=== PATIENT | female | born 1935 | race Caucasian/White ===

== ENCOUNTER 2022-03-29 12:38 | Inpatient (IN) ==
[2022-03-29] MEDS ORDERED: Morphine 4 MG/ML VIAL (1 ml) IV ONE (12:45)
[2022-03-29 15:00] LABS: ABS Eosinophils 0.1 10^3/ul (0-0.6); ABS Lymphocytes 0.9 10^3/ul (1.0-4.8); ABS Monocytes 0.8 10^3/ul (0-0.8); ABS Neutrophils 15.7 10^3/ul (1.5-7.7); Eosinophil % 0.3 %; Hematocrit 38 % (35-47); Hemoglobin 13.1 g/dL (12.0-16.0); Lymphocyte % 5.3 %; Mean Corpuscular HGB Conc 34 g/dL (31-36); Mean Corpuscular Hemoglobin 30 pg (27-31); Mean Corpuscular Volume 89 fL (80-97); Mean Platelet Volume 9.3 fL (7.4-10.4); Platelet Count 237 10^3/uL (150-450); Red Blood Count 4.33 10^6 /uL (3.70-4.87); Red Cell Distribution Width 14 % (10-15); White Blood Count 17.6 10^3/uL (3.5-10.8)
[2022-03-29 15:39] LABS: Calcium 9.8 mg/dL (8.6-10.3); Potassium 3.6 mmol/L (3.5-5.0); eGFR CKD-EPI 61.1 (>60)
[2022-03-29] MEDS ORDERED: Al Hydrox/Mg Hydrox/Simet LIQ 30 ML UDC PO PRN (17:38)
[2022-03-29] MEDS ORDERED: Magnesium Hydroxide LIQ 30 ML UDC PO PRN (17:38)
[2022-03-29] MEDS ORDERED: Ondansetron 4 mg VIAL 2 MG/ML 2 ml VIAL IV PRN (17:38)
[2022-03-29] MEDS ORDERED: Morphine 2 MG/ML SYRINGE IV PRN (17:45)
[2022-03-29] MEDS ORDERED: Heparin 5000 UNITS/ML 1 mL VIAL SUBCUT SCH (22:00)
[2022-03-29] MEDS: Morphine 2 MG/ML SYRINGE IV PRN (22:13)
[2022-03-30 05:57] LABS: ABS Basophils 0.1 10^3/ul (0-0.2); ABS Eosinophils 0.3 10^3/ul (0-0.6); ABS Lymphocytes 1.6 10^3/ul (1.0-4.8); ABS Monocytes 0.8 10^3/ul (0-0.8); ABS Neutrophils 6.5 10^3/ul (1.5-7.7); Eosinophil % 2.9 %; Hematocrit 34 % (35-47); Lymphocyte % 17.3 %; Mean Corpuscular HGB Conc 35 g/dL (31-36); Mean Corpuscular Hemoglobin 31 pg (27-31); Mean Corpuscular Volume 88 fL (80-97); Platelet Count 193 10^3/uL (150-450); Red Cell Distribution Width 13 % (10-15); White Blood Count 9.2 10^3/uL (3.5-10.8)
[2022-03-30] MEDS: Morphine 2 MG/ML SYRINGE IV PRN ×2 (05:59→10:01)
[2022-03-30] MEDS ORDERED: Lactated Ringers 1000 ml BAG 1,000 ML IV SCH ×2 (06:00→11:00)
[2022-03-30 06:02] LABS: INR 1.14 (0.89-1.11)
[2022-03-30 06:10] LABS: Calcium 8.8 mg/dL (8.6-10.3); Magnesium 1.5 mg/dL (1.9-2.7); Potassium 3.4 mmol/L (3.5-5.0); eGFR CKD-EPI 51.4 (>60)
[2022-03-30] MEDS ORDERED: Magnesium Sulfate 2 gm BAG 2 GM/50 ML BAG IVPB ONE (07:56)
[2022-03-30] MEDS ORDERED: Acetaminophen IV 1 GM/100ML 100 ML IV PRN (10:07)
[2022-03-30] MEDS ORDERED: Buffered Lidocaine 1% SYRIN 1 ml INTRADERM ONE (10:23)
[2022-03-30] MEDS ORDERED: KCL 10 MEQ/50 ML IVPREMIX 10 MEQ/50 ML BAG IV ONE (10:32)
[2022-03-30] MEDS ORDERED: Ondansetron 4 mg VIAL 2 MG/ML 2 ml VIAL ONE (11:22)
[2022-03-30] MEDS ORDERED: Dexamethasone IV 4 MG/ML VIAL 1 ml VIAL ONE (11:22)
[2022-03-30] MEDS ORDERED: Propofol 10 MG/ML 20 ML BTL ONE (11:22)
[2022-03-30] MEDS ORDERED: Clindamycin 900 MG/D5W BAG 900 MG/50 ML BAG IVPB ONE (11:50)
[2022-03-30 12:08] LABS: Vitamin D Total 25(OH) 25.4 ng/mL (20-50)
[2022-03-30] MEDS ORDERED: HYDROmorphone 0.5 MG/0.5 ML SYRINGE ONE (13:35)
[2022-03-30] MEDS ORDERED: Phenylephrine IV 10 MG/ML 1 ml VIAL ONE (13:46)
[2022-03-30] MEDS ORDERED: Naloxone 0.4 mg VIAL 0.4 mg/ml 1 ml VIAL IV PRN (14:39)
[2022-03-30] MEDS ORDERED: Ondansetron 4 mg VIAL 2 MG/ML 2 ml VIAL IV PRN (14:39)
[2022-03-30] MEDS ORDERED: Acetaminophen IV 1 GM/100ML 100 ML IV ONE (14:40)
[2022-03-30] MEDS ORDERED: fentaNYL 100 mcg/2 ml 50 MCG/ML VIAL ONE (16:32)
[2022-03-30] MEDS: fentaNYL 100 mcg/2 ml 50 MCG/ML VIAL IV PRN ×2 (16:38→17:14)
[2022-03-30] MEDS: Clindamycin 600 MG/D5W BAG IV SCH (21:43)
[2022-03-31 05:03] LABS: ABS Lymphocytes 0.4 10^3/ul (1.0-4.8); ABS Monocytes 0.7 10^3/ul (0-0.8); ABS Neutrophils 12.3 10^3/ul (1.5-7.7); Eosinophil % 0.1 %; Hematocrit 28 % (35-47); Hemoglobin 9.5 g/dL (12.0-16.0); Mean Corpuscular HGB Conc 34 g/dL (31-36); Mean Corpuscular Hemoglobin 30 pg (27-31); Mean Corpuscular Volume 88 fL (80-97); Mean Platelet Volume 8.8 fL (7.4-10.4); Platelet Count 173 10^3/uL (150-450); Red Blood Count 3.18 10^6 /uL (3.70-4.87); Red Cell Distribution Width 13 % (10-15); White Blood Count 13.5 10^3/uL (3.5-10.8)
[2022-03-31] MEDS: Clindamycin 600 MG/D5W BAG IV SCH ×2 (05:06→14:10)
[2022-03-31 05:42] LABS: Calcium 8.5 mg/dL (8.6-10.3); Magnesium 1.9 mg/dL (1.9-2.7); Potassium 4.1 mmol/L (3.5-5.0); eGFR CKD-EPI 48.1 (>60)
[2022-03-31 05:57] LABS: TSH Ultra Thyroid Stim Horm 0.74 mcIU/mL (0.34-5.60)
[2022-03-31] MEDS ORDERED: Lactated Ringers 500 ml BAG 500 ML IV ONE (08:19)
[2022-03-31] MEDS: Enoxaparin 30 MG/0.3 ML SYR SUBCUT SCH (10:19)
[2022-03-31] MEDS ORDERED: Lactated Ringers 1000 ml BAG 1,000 ML IV ONE (15:15)
[2022-04-01 05:43] LABS: ABS Eosinophils 0.2 10^3/ul (0-0.6); ABS Lymphocytes 1.4 10^3/ul (1.0-4.8); ABS Monocytes 0.6 10^3/ul (0-0.8); ABS Neutrophils 6.8 10^3/ul (1.5-7.7); Eosinophil % 2.6 %; Hematocrit 25 % (35-47); Hemoglobin 8.8 g/dL (12.0-16.0); Lymphocyte % 15.2 %; Mean Corpuscular HGB Conc 35 g/dL (31-36); Mean Corpuscular Hemoglobin 31 pg (27-31); Mean Corpuscular Volume 89 fL (80-97); Mean Platelet Volume 9.2 fL (7.4-10.4); Platelet Count 160 10^3/uL (150-450); Red Blood Count 2.86 10^6 /uL (3.70-4.87); Red Cell Distribution Width 13 % (10-15); White Blood Count 9.1 10^3/uL (3.5-10.8)
[2022-04-01 06:39] LABS: Calcium 8.6 mg/dL (8.6-10.3); Magnesium 1.8 mg/dL (1.9-2.7); Potassium 4.1 mmol/L (3.5-5.0); eGFR CKD-EPI 61.9 (>60)
[2022-04-01] MEDS ORDERED: Magnesium Sulfate IV 1GM/100ML 1 GM/100 ML BAG IV ONE (08:08)
[2022-04-01] MEDS: Enoxaparin 30 MG/0.3 ML SYR SUBCUT SCH (08:47)
[2022-04-01] MEDS ORDERED: Lactated Ringers 1000 ml BAG 1,000 ML IV ONE (09:32)
[2022-04-02 06:56] LABS: ABS Basophils 0.1 10^3/ul (0-0.2); ABS Eosinophils 0.3 10^3/ul (0-0.6); ABS Lymphocytes 1.7 10^3/ul (1.0-4.8); ABS Monocytes 0.7 10^3/ul (0-0.8); Eosinophil % 3.5 %; Hematocrit 23 % (35-47); Lymphocyte % 21.8 %; Mean Corpuscular HGB Conc 35 g/dL (31-36); Mean Corpuscular Hemoglobin 31 pg (27-31); Mean Corpuscular Volume 88 fL (80-97); Mean Platelet Volume 9.7 fL (7.4-10.4); Platelet Count 161 10^3/uL (150-450); Red Blood Count 2.58 10^6 /uL (3.70-4.87); Red Cell Distribution Width 14 % (10-15); White Blood Count 7.7 10^3/uL (3.5-10.8)
[2022-04-02 07:09] LABS: Calcium 8.5 mg/dL (8.6-10.3); Potassium 4.4 mmol/L (3.5-5.0); eGFR CKD-EPI 69.2 (>60)
[2022-04-02] MEDS: Enoxaparin 30 MG/0.3 ML SYR SUBCUT SCH (08:00)
[2022-04-03 06:51] LABS: Hematocrit 24 % (35-47); Hemoglobin 8.6 g/dL (12.0-16.0); Mean Platelet Volume 9.1 fL (7.4-10.4); Platelet Count 191 10^3/uL (150-450)
[2022-04-03 07:14] LABS: Calcium 8.7 mg/dL (8.6-10.3); Magnesium 1.9 mg/dL (1.9-2.7); Potassium 4.4 mmol/L (3.5-5.0); eGFR CKD-EPI 71.3 (>60)
[2022-04-03] MEDS: Enoxaparin 30 MG/0.3 ML SYR SUBCUT SCH (09:03)
[2022-04-03 11:30] VITALS: BP 132/84
== END 2022-04-03 12:35 | disposition home or self-care (01) | DRG 481 ==
LOC: ED 12:38 → EDHOLD 17:38 → SUATTDRO 17:38 → SSU 22:36
PROVIDERS: ADMIT Internal Medicine; ATTEND Internal Medicine